=== PATIENT | male | born 1960 | race Caucasian/White ===

== ENCOUNTER → 2017-05-01 | Outpatient (CLI) | payer BC ==
[~2017-05-01] MED LIST: IOPAMIDOL 370 MG/ML 200 ML INFUS..BTL INJ ONE; SODIUM CHLORIDE 0.9% 50ML 100 ML ONE
[2017-05-01 09:13] LABS: BLOOD UREA NITROGEN 19 mg/dL (7-26); BUN/CREATININE RATIO 21 (6-25); CREATININE, SERUM 0.91 mg/dL (0.72-1.25); EST GLOMERULAR FILTRATION RATE > 60 ML/MIN (60-)
--- NOTE | 2017-05-01 10:21 | Diagnostic Imaging Report ---
EXAM: CTA Abdomen and Pelvis WITH CONTRAST. DATE: 05/01/2017 8:35 AM INDICATION: Aneurysm COMPARISON: None TECHNIQUE: CT angiogram of the abdomen and pelvis was obtained after the administration of IV contrast. Prospective gating was performed. Images reviewed in the axial, coronal, and sagittal planes. 3D reconstructions performed on off-line workstation. IV Contrast: 100 mL Isovue-[id number]. Total DLP: 699 mGy*cm Est. Eff. Dose DLP x 0.015 x size factor mSv (CTDIvol has been reviewed and is below limits set by [facility]). FINDINGS: VASCULAR: Abdominal Aorta Mesenteric Segment: 22 mm. Abdominal Aorta Just Below Renal Arteries: 19 mm. Mid Infrarenal Abdominal Aorta: 18 mm. Abdominal Aortal at Bifurcation: 18 mm. Other: Moderate atherosclerotic changes and mural plaque in the mid to distal aorta. No aneurysm or dissection. Mesenteric Arteries: Celiac trunk and SMA are patent with no significant atherosclerotic changes. Single bilateral renal arteries unremarkable. RCIA: 11 mm. LCIA: 11 mm. Internal Iliac Arteries: Moderate atherosclerotic changes, particularly at origin. No proximal occlusion. Abdomen: Lung Bases: Atelectasis. Solid Organs: Decreased attenuation the liver suggesting a ptosis. Small focal area of enhancement right hepatic lobe inferiorly suggests flash filled tiny hemangioma. Adrenals, kidneys, spleen, and pancreas are unremarkable. Upper GI Tract: Partial gastric decompression limits evaluation. No small bowel obstructive changes. Lymph Nodes: No suspicious adenopathy. Scattered small mesenteric lymph nodes not enlarged by size criteria. Other: None. Pelvis: Bladder: Moderate distention of urinary bladder with lobular wall. Other: Prosthetic calcifications. Colon: No acute colonic findings. Appendix not inflamed. Bones: No acute findings. IMPRESSION: 1. No aortic aneurysm or dissection identified. Moderate atherosclerotic changes and mural plaque present in the mid to distal aorta, common iliac, and internal iliac arteries. 2. Moderate distention of the urinary bladder with lobular wall. Findings can be seen in the setting of chronic bladder outlet obstruction or neurogenic bladder. Correlation recommended. 3. Hepatic steatosis. 4. Other findings as above. Signed by: Dr. Manuel George MD on 05/01/2017 10:17 AM
== END ==
LOC: CT 08:21
PROVIDERS: ATTEND Internal Medicine Interventional Cardiology
DX: I71.4 Abdominal aortic aneurysm, without rupture (principal)
CPT/HCPCS: 36415; 74174; 82565; 84520; Q9967